=== PATIENT | male | born 1975 | race Caucasian/White ===

== ENCOUNTER 2025-02-20 07:41 | Observation (INO) | payer OTHER ==
--- NOTE | 2025-02-20 07:49 | ERPHSYRPT ---
- History of Present Illness Time Seen by Provider: 02/20/25 07:48 Historian: patient Exam Limitations: no limitations Physician History: This is a 49-year-old white male patient who does not have a primary care provider but does use [facility] outpatient services if needed, and presents with bloody stool and lower abdominal cramping and burning sensation that began at midnight. He had 4 episodes of passage of stool. The first occurred approximately midnight and he did "pass out" he hit his head and there is a very small frontal scalp laceration not requiring any suture or staple closure. He has never had episodes like this before. Approximately 4 [address] Sayda Talavera performed a colonoscopy on this patient and found 6 polyps per patient report. Patient has no nausea or vomiting. He denies chest pain. He denies shortness of breath. He has no known liver disease and he is not on any anticoagulation therapy. He did start creatine and colostrum [id number] products within the last week. Patient does take a baby aspirin daily. Patient arrives hemodynamically stable with a heart rate in the 60s and systolic blood pressure 150s millimeters mercury. Timing/Duration: today Activities at Onset: none Quality: burning (Mild lower abdominal), cramping (Mild lower abdominal) Abdominal Pain Onset Location: other (Infraumbilical) Pain Radiation: no radiation Severity of Pain-Max: mild Severity of Pain-Current: mild Modifying Factors: Improves With: nothing Associated Symptoms: denies symptoms Previous symptoms: no prior history, no recent treatment Allergies/Adverse Reactions: No Known Drug Allergies Allergy (Unverified 02/20/25 07:53) Home Medications: Atorvastatin Calcium 40 mg PO DAILY 02/20/25 [History] Ubidecarenone [Co Q-10] 1 cap PO DAILY 02/20/25 [History] Valsartan/Hydrochlorothiazide [Diovan Hct 80-12.5 mg Tablet] 1 tab PO DAILY 02/20/25 [History] Travel Risk - International Travel Have you traveled outside of the country in past 3 weeks: No - Emerging Infectious Disease Are you exhibiting symptoms associated with any current EIDs: No - Review of Systems Constitutional: No Symptoms Eyes: No Symptoms Ears, Nose, & Throat: No Symptoms Respiratory: No Symptoms Cardiac: No Symptoms Abdominal/Gastrointestinal: Abdominal Pain (Mild infraumbilical bilateral cramping and burning), Hematochezia Genitourinary Symptoms: No Symptoms Musculoskeletal: No Symptoms Skin: No Symptoms Neurological: No Symptoms Psychological: No Symptoms Endocrine: No Symptoms Hematologic/Lymphatic: No Symptoms Immunological/Allergic: No Symptoms All Other Systems: Reviewed and Negative - Past Medical History Pertinent Past Medical History: Yes - Past Surgical History Past Surgical History: Yes - Nursing Vital Signs Nursing Vital Signs: Initial Vital Signs Temperature 97 F 02/20/25 07:42 Pulse Rate 62 02/20/25 07:42 Respiratory Rate 18 02/20/25 07:42 Blood Pressure 144/83 02/20/25 07:42 O2 Sat by Pulse Oximetry 98 02/20/25 07:42 Pain Scale Pain Intensity 2 - Physical Exam General Appearance: no apparent distress, alert, anxiety Eye Exam: PERRL/EOMI, eyes nml inspection Ears, Nose, Throat Exam: normal ENT inspection, moist mucous membranes Neck Exam: normal inspection, non-tender, supple, full range of motion Respiratory Exam: normal breath sounds, lungs clear, No chest tenderness, No respiratory distress Cardiovascular Exam: regular rate/rhythm, normal heart sounds, normal peripheral pulses Gastrointestinal/Abdomen Exam: soft, normal bowel sounds, tenderness (Mild infraumbilical bilateral abdominal tenderness to palpation), guarding, No rebound Rectal Exam: not done Back Exam: normal inspection, normal range of motion, No CVA tenderness, No vertebral tenderness Extremity Exam: normal inspection, normal range of motion Neurologic Exam: alert, oriented x 3, cooperative, 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 II-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 nml as tested, nml cerebellar function, nml station & gait, sensation nml Skin Exam: normal color, warm, dry Lymphatic Exam: No adenopathy SpO2 Interpretation: normal O2 Delivery: Room Air - Course Nursing assessment & vital signs reviewed: Yes Ordered Tests: Active Orders 24 hr Category Date Time Status IV Insertion STAT Care 02/20/25 08:03 Active Orthostatic Vital Signs STAT Care 02/20/25 08:39 Active ABDOMEN AND PELVIS W/0 CONTRAS [CT] Stat Exams 02/20/25 08:05 Completed HEAD WITHOUT CONTRAST [CT] Stat Exams 02/20/25 08:06 Completed CBC W DIFF Stat Lab 02/20/25 08:15 Completed CMP Stat Lab 02/20/25 08:15 Completed PROTIME WITH INR Stat Lab 02/20/25 08:15 Completed Lab/Rad Data: Laboratory Result Diagrams 02/20/25 08:15 02/20/25 08:15 Laboratory Results 02/20/25 02/20/25 02/20/25 Range/Units 08:49 08:15 08:15 WBC (4.23-9.07) x10^3/uL RBC (4.63-6.08) x10^6/uL Hgb (13.7-17.5) g/dL Hct (40.1-51.0) % MCV (79.0-92.2) fL MCH (25.7-32.2) pg MCHC (32.3-36.5) g/dL RDW (11.6-14.4) % Plt Count (163-337) x10^3/uL MPV (9.4-12.4) fL Gran % (34.0-67.9) % Immature Gran % (Auto) (0.001-0.429) % Nucleat RBC Rel Count (0.00-0.2) % Eos # (Auto) (0.04-0.54) x10^3/uL Immature Gran # (Auto) (0.001-0.031) x10^3u/L Absolute Lymphs (auto) (1.32-3.57) x10^3/uL Absolute Monos (auto) (0.30-0.82) x10^3/uL Absolute Nucleated RBC (0.00-0.012) x10^3u/L Lymphocytes % (21.8-53.1) % Monocytes % (5.3-12.2) % Eosinophils % (0.8-7.0) % Basophils % (0.2-1.2) % Absolute Granulocytes (1.78-5.38) x10^3/uL Basophils # (0.01-0.08) x10^3/uL PT 11.6 (9.4-12.5) SECONDS INR 1.04 (0.8-3.0) Sodium 137 (135-145) mmol/L Potassium 4.0 (3.5-5.1) mmol/L Chloride 107 (98-107) mmol/L Carbon Dioxide 23 (22-30) mmol/L Anion Gap 11.9 (5-15) MEQ/L BUN 19 (9-20) mg/dL Creatinine 0.91 (0.66-1.25) mg/dL Estimated GFR 102.0 ML/MIN Glucose 108 H (74-106) mg/dL Calcium 8.6 (8.4-10.2) mg/dL Total Bilirubin 0.40 (0.2-1.3) mg/dL AST 22 (17-59) U/L ALT 22 (0-50) U/L Alkaline Phosphatase 49 (38-126) U/L Serum Total Protein 6.4 (6.3-8.2) g/dL Albumin 3.8 (3.5-5.0) g/dL ABO Group O Rh Factor NEGATIVE Antibody Screen NEGATIVE (NEGATIVE) 02/20/25 Range/Units 08:15 WBC 9.7 H (4.23-9.07) x10^3/uL RBC 3.88 L (4.63-6.08) x10^6/uL Hgb 11.2 L (13.7-17.5) g/dL Hct 34.8 L (40.1-51.0) % MCV 89.7 (79.0-92.2) fL MCH 28.9 (25.7-32.2) pg MCHC 32.2 L (32.3-36.5) g/dL RDW 12.5 (11.6-14.4) % Plt Count 197 (163-337) x10^3/uL MPV 9.8 (9.4-12.4) fL Gran % 56.6 (34.0-67.9) % Immature Gran % (Auto) 0.5 H (0.001-0.429) % Nucleat RBC Rel Count 0.0 (0.00-0.2) % Eos # (Auto) 0.09 (0.04-0.54) x10^3/uL Immature Gran # (Auto) 0.05 H (0.001-0.031) x10^3u/L Absolute Lymphs (auto) 3.23 (1.32-3.57) x10^3/uL Absolute Monos (auto) 0.80 (0.30-0.82) x10^3/uL Absolute Nucleated RBC 0.00 (0.00-0.012) x10^3u/L Lymphocytes % 33.4 (21.8-53.1) % Monocytes % 8.3 (5.3-12.2) % Eosinophils % 0.9 (0.8-7.0) % Basophils % 0.3 (0.2-1.2) % Absolute Granulocytes 5.48 H (1.78-5.38) x10^3/uL Basophils # 0.03 (0.01-0.08) x10^3/uL PT (9.4-12.5) SECONDS INR (0.8-3.0) Sodium (135-145) mmol/L Potassium (3.5-5.1) mmol/L Chloride (98-107) mmol/L Carbon Dioxide (22-30) mmol/L Anion Gap (5-15) MEQ/L BUN (9-20) mg/dL Creatinine (0.66-1.25) mg/dL Estimated GFR ML/MIN Glucose (74-106) mg/dL Calcium (8.4-10.2) mg/dL Total Bilirubin (0.2-1.3) mg/dL AST (17-59) U/L ALT (0-50) U/L Alkaline Phosphatase (38-126) U/L Serum Total Protein (6.3-8.2) g/dL Albumin (3.5-5.0) g/dL ABO Group Rh Factor Antibody Screen (NEGATIVE) - Progress Progress: unchanged, re-examined Progress Note: 02/20/25 08:37 My medical decision making and assignment of moderate complexity of this patient's medical issue today is based on review of the patient's past medical history, reviewed patient's medication list, reviewed patient drug allergy list, history present illness and physical findings on examination. The workup in this patient clues placement of intravenous line, CBC, CMP, type and screen, PT/INR, CT scan of the abdomen pelvis without contrast and obtain orthostatic vital signs. Differential diagnosis includes but is not limited to internal hemorrhoid bleeding, colonic bleeding, bleeding/clotting disorder, diverticulosis 02/20/25 10:12 I interpreted the patient's laboratory data results. Based on laboratory data results, the patient has a mildly low hemoglobin at 11.2. The patient is hemodynamically stable. He has had an additional episode of bright red blood rectally here in the emergency department. The following CT scans were performed without contrast and were interpreted by the radiologist. The impressions are: CT scan of the head without is normal study. CT scan of the abdomen pelvis without contrast shows 1.3 cm gallstones. There is an old right rib fracture. There are mild degenerative changes in bilateral hips. The remaining abdominal pelvic CT scan without contrast is normal 02/20/25 10:[address] Peter Talavera, the general surgeon on-call at this time. I reviewed the patient history, physical findings on examination, results of the workup. He agrees to consult on this patient for colonoscopy. I will be contacting telehospitalist for placement in observation and and we will repeat labs in the morning. Dr. Talavera will be consulted and he will write orders for a bowel prep and plan on endoscopy tomorrow, 02/21/[address] Freeman, the telehospitalist on-call at this time. I reviewed the patient history, physical findings on the examination and the results of the workup. He accepts the patient to be placed in observation. Counseled pt/family regarding: lab results, diagnosis, rad results Medical Desision Making - Diagnostic Testing Diagnostic test were ordered, analyzed, and reviewed by me: Yes Radiological Interpretation: Reviewed by me, Teleradiologist Report - Risk of complications The pt has a high risk of morbidity or mortality based on: Decision regarding hospitilization or escalation of hosp level of care - Departure Departure Disposition: Observation Clinical Impression: Rectal bleeding Condition: Stable Critical Care Time: No Referrals: DOCTOR,NO FAMILY [Primary Care Provider, UNKNOWN] - Follow up/PCP as directed
[2025-02-20 08:27] LABS: BASOPHIL % 0.3 % (0.2-1.2); Basophil (Absolute #) 0.03 x10^3/uL (0.01-0.08); Eosinophil (Absolute #) 0.09 x10^3/uL (0.04-0.54); Hematocrit 34.8 % (40.1-51.0); Hemoglobin 11.2 g/dL (13.7-17.5); IMMATURE GRAN # 0.05 x10^3u/L (0.001-0.031); IMMATURE GRAN % 0.5 % (0.001-0.429); Lymphocyte (Absolute #) 3.23 x10^3/uL (1.32-3.57); Mean Corpuscular Hemoglobin 28.9 pg (25.7-32.2); Mean Corpuscular Hgb Concent. 32.2 g/dL (32.3-36.5); Monocyte (Absolute #) 0.80 x10^3/uL (0.30-0.82); NUCLEATED RBC # 0.00 x10^3u/L (0.00-0.012); NUCLEATED RBC % 0.0 % (0.00-0.2); Platelet Count 197 x10^3/uL (163-337); Red Blood Count 3.88 x10^6/uL (4.63-6.08); White Blood Count 9.7 x10^3/uL (4.23-9.07)
[2025-02-20 08:41] LABS: INR 1.04 (0.8-3.0); PROTIME 11.6 SECONDS (9.4-12.5)
[2025-02-20 09:02] LABS: Calcium 8.6 mg/dL (8.4-10.2); Carbon Dioxide 23.0 mmol/L (22-30); Creatinine 1 0.91 mg/dL (0.66-1.25); EST GLOMERULAR FILTRATION RATE 102.0 ML/MIN; Glucose 108.0 mg/dL (74-106); Potassium 4.0 mmol/L (3.5-5.1); SGOT/AST 22.0 U/L (17-59); SGPT/ALT 22.0 U/L (0-50); Total Protein 6.4 g/dL (6.3-8.2)
[2025-02-20 09:21] LABS: ABO TYPING O; RH TYPING NEGATIVE
--- NOTE | 2025-02-20 09:52 | XRAY ---
Indication: Fall. Syncope. Head injury. Multiple contiguous axial images obtained through the head without contrast. Comparison: None Normal appearing brain parenchyma, ventricles, and bony calvarium for patient's age. Visualized paranasal sinuses and mastoid air cells are clear. Impression: Normal CT head without contrast exam.
--- NOTE | 2025-02-20 10:01 | XRAY ---
Indication: Lower abdominal cramping. Bloody stools. Multiple contiguous axial images obtained through the abdomen pelvis without contrast. Comparison: None Lung bases clear. Heart not enlarged. Noncontrasted stomach and bowel loops appear nonobstructed with normal appendix. 1.3 cm gallstone. No free fluid/air. Remaining liver, pancreas, spleen, adrenal glands, kidneys, ureters, bladder, and aorta are unremarkable for noncontrast exam. Osseous structures intact with old right 10 rib fracture and mild degenerative changes both hips. Impression: 1. 1.3 cm gallstone, old right 10 rib fracture, and mild degenerative changes both hips. 2. Remaining CT abdomen/pelvis without contrast exam is normal.
[2025-02-20] MEDS ORDERED: TYLENOL 325 MG PO PRN (11:48)
--- NOTE | 2025-02-20 13:05 | PCM.HP ---
History of Present Illness - Chief Complaint Chief Complaint: GI bleed Date: 02/20/25 History of Present Illness: is a 49 year old male with pmhx of Hypertension, hyperlipidemia, hemorrhoids, and chronic obesity. Pt presented to ER today with bloody stool and lower abdominal cramping and burning sensation that began at midnight. He had 4 episodes of passage of stool. The first occurred approximately midnight and he did "pass out" he hit his head and there is a very small frontal scalp laceration not requiring any suture or staple closure. He has never had episodes like this before. Approximately 4 [address] Sayda Talavera performed a colonoscopy on this patient and found 6 polyps per patient report. Patient has no nausea or vomiting. He denies chest pain. He denies shortness of breath. He has no known liver disease and he is not on any anticoagulation therapy. He did start creatine and colostrum [id number] products within the last week. Patient does take a baby aspirin daily. Patient arrives hemodynamically stable. Hgb 11.2 General surgery consulted in the ER and will follow-up tomorrow with patient for colonoscopy. Patient to be n.p.o. after midnight. IV fluids started and will be continued inpatient. Protonix 80 IV x 1 then 40 twice daily daily to be started. Patient started on a clear liquid diet. Patient denies any other concerning symptoms at this time. - Review of Systems Constitutional: No Fever, No Chills Eyes: No Symptoms Ears, Nose, & Throat: No Symptoms Respiratory: No Cough, No Short Of Breath Cardiac: No Chest Pain, No Edema, No Syncope Abdominal/Gastrointestinal: Hematochezia, Melena, No Abdominal Pain, No Nausea, No Vomiting, No Diarrhea Genitourinary Symptoms: No Dysuria Musculoskeletal: No Back Pain, No Neck Pain Skin: No Rash Neurological: No Dizziness, No Focal Weakness, No Sensory Changes Psychological: No Symptoms Endocrine: No Symptoms Hematologic/Lymphatic: No Symptoms Immunological/Allergic: No Symptoms Medications & Allergies Home Medications: Home Medication List Aspirin EC 81 mg [Ecotrin 81 mg] 81 mg PO DAILY 02/20/25 [History Confirmed 02/20/25] Atorvastatin Calcium 40 mg PO DAILY 02/20/25 [History Confirmed 02/20/25] Ubidecarenone [Co Q-10] 1 cap PO DAILY 02/20/25 [History Confirmed 02/20/25] Valsartan/Hydrochlorothiazide [Diovan Hct 80-12.5 mg Tablet] 1 tab PO DAILY 02/20/25 [History Confirmed 02/20/25] Allergies/Adverse Reactions: Allergies Allergy/AdvReac Type Severity Reaction Status Date / Time No Known Drug Allergies Allergy Verified 02/20/25 11:50 - Past Medical History Past Medical History: Yes Cardiac History: High Cholesterol, Hypertension Musculoskelatal History: No Pertinent History GI Medical History: Hemorrhoids History: No Pertinent History Pyscho-Social History: No Pertinent History Male Reproductive Disorders: No Pertinent History Comment: basal cell carcinoma RLE - Past Surgical History Past Surgical History: Yes Neuro Surgical History: No Pertinent History Cardiac History: No Pertinent History Respiratory Surgery: No Pertinent History GI Surgical History: No Pertinent History Genitourinary Surgical Hx: No Pertinent History Musculskeletal Surgical Hx: No Pertinent History Male Surgical History: No Pertinent History Other Surgical History: LAST CS 4YRS AGO, 6 POLYPS REMOVED Significant Family History: no pertinent family hx - Social History Smoking Status: Former smoker Exposure to second hand smoke: No Alcohol: Occasionally Drug Use: none - Social Determinants of Health Will the patient participate in the screening: Yes Do you worry about a steady place to live?: No Do you have any problems with any of the following?: No known problems In the past 12 months,have you had to go without utilities?: No Have you or anyone in your house had to go without enough: No Transportation Issues: No Has anyone in your support network made you feel unsafe?: No Does the patient want assistance with any of the above?: No - Physical Exam Vital Signs: Vital Signs - 24 hr Temp Pulse Resp BP BP Pulse Ox 02/20/25 12:01 97.8 F 60 18 130/75 99 02/20/25 12:00 97.8 F 60 18 130/75 99 02/20/25 11:00 68 18 122/71 02/20/25 10:30 78 18 117/67 100 02/20/25 10:00 60 132/86 97 02/20/25 09:36 132/97 98 02/20/25 09:35 161/87 02/20/25 09:30 61 124/66 98 02/20/25 09:03 113/79 97 02/20/25 08:09 65 16 144/83 97 02/20/25 07:47 159/93 02/20/25 07:42 97 F 62 18 144/83 98 General Appearance: no apparent distress, alert Neurologic Exam: alert, oriented x 3, cooperative, normal mood/affect, nml cerebellar function, nml station & gait, sensation nml, No motor deficits Eye Exam: PERRL/EOMI, eyes nml inspection Ears, Nose, Throat Exam: normal ENT inspection, TMs normal, pharynx normal, moist mucous membranes Neck Exam: normal inspection, non-tender, supple, full range of motion Respiratory Exam: normal breath sounds, lungs clear, No respiratory distress Cardiovascular Exam: regular rate/rhythm, normal heart sounds, normal peripheral pulses Gastrointestinal/Abdomen Exam: soft, normal bowel sounds, tenderness, No mass Back Exam: normal inspection, normal range of motion, No CVA tenderness, No vertebral tenderness Extremity Exam: normal inspection, normal range of motion, pelvis stable Skin Exam: normal color, warm, dry, No rash Lymphatic Exam: No adenopathy Results - Labs Lab/Micro Results: Lab Results-Last 24 Hours 02/20/25 02/20/25 02/20/25 Range/Units 08:15 08:15 08:15 WBC 9.7 H (4.23-9.07) x10^3/uL RBC 3.88 L (4.63-6.08) x10^6/uL Hgb 11.2 L (13.7-17.5) g/dL Hct 34.8 L (40.1-51.0) % MCV 89.7 (79.0-92.2) fL MCH 28.9 (25.7-32.2) pg MCHC 32.2 L (32.3-36.5) g/dL RDW 12.5 (11.6-14.4) % Plt Count 197 (163-337) x10^3/uL MPV 9.8 (9.4-12.4) fL Gran % 56.6 (34.0-67.9) % Immature Gran % (Auto) 0.5 H (0.001-0.429) % Nucleat RBC Rel Count 0.0 (0.00-0.2) % Eos # (Auto) 0.09 (0.04-0.54) x10^3/uL Immature Gran # (Auto) 0.05 H (0.001-0.031) x10^3u/L Absolute Lymphs (auto) 3.23 (1.32-3.57) x10^3/uL Absolute Monos (auto) 0.80 (0.30-0.82) x10^3/uL Absolute Nucleated RBC 0.00 (0.00-0.012) x10^3u/L Lymphocytes % 33.4 (21.8-53.1) % Monocytes % 8.3 (5.3-12.2) % Eosinophils % 0.9 (0.8-7.0) % Basophils % 0.3 (0.2-1.2) % Absolute Granulocytes 5.48 H (1.78-5.38) x10^3/uL Basophils # 0.03 (0.01-0.08) x10^3/uL PT 11.6 (9.4-12.5) SECONDS INR 1.04 (0.8-3.0) Sodium 137 (135-145) mmol/L Potassium 4.0 (3.5-5.1) mmol/L Chloride 107 (98-107) mmol/L Carbon Dioxide 23 (22-30) mmol/L Anion Gap 11.9 (5-15) MEQ/L BUN 19 (9-20) mg/dL Creatinine 0.91 (0.66-1.25) mg/dL Estimated GFR 102.0 ML/MIN Glucose 108 H (74-106) mg/dL Calcium 8.6 (8.4-10.2) mg/dL Total Bilirubin 0.40 (0.2-1.3) mg/dL AST 22 (17-59) U/L ALT 22 (0-50) U/L Alkaline Phosphatase 49 (38-126) U/L Serum Total Protein 6.4 (6.3-8.2) g/dL Albumin 3.8 (3.5-5.0) g/dL ABO Group Rh Factor Antibody Screen (NEGATIVE) 02/20/25 Range/Units 08:49 WBC (4.23-9.07) x10^3/uL RBC (4.63-6.08) x10^6/uL Hgb (13.7-17.5) g/dL Hct (40.1-51.0) % MCV (79.0-92.2) fL MCH (25.7-32.2) pg MCHC (32.3-36.5) g/dL RDW (11.6-14.4) % Plt Count (163-337) x10^3/uL MPV (9.4-12.4) fL Gran % (34.0-67.9) % Immature Gran % (Auto) (0.001-0.429) % Nucleat RBC Rel Count (0.00-0.2) % Eos # (Auto) (0.04-0.54) x10^3/uL Immature Gran # (Auto) (0.001-0.031) x10^3u/L Absolute Lymphs (auto) (1.32-3.57) x10^3/uL Absolute Monos (auto) (0.30-0.82) x10^3/uL Absolute Nucleated RBC (0.00-0.012) x10^3u/L Lymphocytes % (21.8-53.1) % Monocytes % (5.3-12.2) % Eosinophils % (0.8-7.0) % Basophils % (0.2-1.2) % Absolute Granulocytes (1.78-5.38) x10^3/uL Basophils # (0.01-0.08) x10^3/uL PT (9.4-12.5) SECONDS INR (0.8-3.0) Sodium (135-145) mmol/L Potassium (3.5-5.1) mmol/L Chloride (98-107) mmol/L Carbon Dioxide (22-30) mmol/L Anion Gap (5-15) MEQ/L BUN (9-20) mg/dL Creatinine (0.66-1.25) mg/dL Estimated GFR ML/MIN Glucose (74-106) mg/dL Calcium (8.4-10.2) mg/dL Total Bilirubin (0.2-1.3) mg/dL AST (17-59) U/L ALT (0-50) U/L Alkaline Phosphatase (38-126) U/L Serum Total Protein (6.3-8.2) g/dL Albumin (3.5-5.0) g/dL ABO Group O Rh Factor NEGATIVE Antibody Screen NEGATIVE (NEGATIVE) - Radiology Impressions Radiology Exams & Impressions: Radiology Procedures Category Date Time Status ABDOMEN AND PELVIS W/0 CONTRAS [CT] Stat Exams 02/20/25 08:05 Completed HEAD WITHOUT CONTRAST [CT] Stat Exams 02/20/25 08:06 Completed Assessment/Plan (1) GI bleed Current Visit: Yes Status: Acute Assessment & Plan: - Protonix IV 80 x1 then 40 BID IV - GS consulted and pt to have scope in AM - NPO at midnight - Clear liquid diet for now - Hgb stable at 11.2 - CT abd/pelvis: Impression: 1. 1.3 cm gallstone, old right 10 rib fracture, and mild degenerative changes both hips. 2. Remaining CT abdomen/pelvis without contrast exam is normal. Code(s): K92.2 - GASTROINTESTINAL HEMORRHAGE, UNSPECIFIED (2) Syncope and collapse Current Visit: Yes Status: Acute Assessment & Plan: - 2:2 GI bleed - EKG - Tele - CBC, CMP reviewed - CT head negative for acute concern - IVF - Cut on forehead from fall with scab Code(s): R55 - SYNCOPE AND COLLAPSE (3) HTN (hypertension) Current Visit: Yes Status: Chronic Assessment & Plan: - BP stable - Resume home meds Code(s): I10 - ESSENTIAL (PRIMARY) HYPERTENSION (4) Hyperlipidemia Current Visit: Yes Status: Chronic Assessment & Plan: - Continue statin Code(s): E78.5 - HYPERLIPIDEMIA, UNSPECIFIED (5) Obesity (BMI 30.0-34.9) Current Visit: Yes Status: Chronic Assessment & Plan: - Advised AHA diet and exercise control VTE: SCD's PPI: Protonix Next of kin: Spouse D/C plan: 1-2 days PLan of care time : > 50 minutes Code(s): E66.811 - OBESITY, CLASS 1
[2025-02-20] MEDS: PROTONIX 40 MG IV IV ONE (14:03)
[2025-02-20] MEDS: hydroDIURIL 25 MG PO SCH (14:05)
[2025-02-20] MEDS: DIOVAN 80 MG PO SCH (14:06)
[2025-02-20] MEDS: ZOCOR 20MG PO SCH (14:06)
[2025-02-20] MEDS: Golytely Solution 4000 ML PO ONE (14:13)
[2025-02-20] MEDS: TYLENOL 325 MG PO PRN (19:36)
[2025-02-20] MEDS: PROTONIX 40 MG IV IV SCH (21:37)
[2025-02-21 05:17] LABS: BASOPHIL % 0.7 % (0.2-1.2); Basophil (Absolute #) 0.04 x10^3/uL (0.01-0.08); Eosinophil (Absolute #) 0.14 x10^3/uL (0.04-0.54); Hematocrit 29.1 % (40.1-51.0); Hemoglobin 9.4 g/dL (13.7-17.5); IMMATURE GRAN # 0.02 x10^3u/L (0.001-0.031); IMMATURE GRAN % 0.3 % (0.001-0.429); Lymphocyte (Absolute #) 2.83 x10^3/uL (1.32-3.57); Mean Corpuscular Hemoglobin 28.9 pg (25.7-32.2); Mean Corpuscular Hgb Concent. 32.3 g/dL (32.3-36.5); Monocyte (Absolute #) 0.59 x10^3/uL (0.30-0.82); NUCLEATED RBC # 0.00 x10^3u/L (0.00-0.012); NUCLEATED RBC % 0.0 % (0.00-0.2); Platelet Count 158 x10^3/uL (163-337); Red Blood Count 3.25 x10^6/uL (4.63-6.08); White Blood Count 5.8 x10^3/uL (4.23-9.07)
[2025-02-21 06:20] LABS: Calcium 8.3 mg/dL (8.4-10.2); Carbon Dioxide 28.0 mmol/L (22-30); Creatinine 1 0.87 mg/dL (0.66-1.25); EST GLOMERULAR FILTRATION RATE 104.5 ML/MIN; Glucose 100.0 mg/dL (74-106); Potassium 3.3 mmol/L (3.5-5.1); SGOT/AST 22.0 U/L (17-59); SGPT/ALT 21.0 U/L (0-50); Total Protein 5.7 g/dL (6.3-8.2)
[2025-02-21] MEDS: POTASSIUM CHLORIDE 20 mEq IN WATER 100ML 20 MEQ/100 ML BAG IV ONE (08:38)
[2025-02-21] MEDS: Zofran 4 MG/2 ML VIAL IV PRN (09:46)
[2025-02-21] MEDS: OFIRMEV 100 ML IV ONE (09:48)
--- NOTE | 2025-02-21 09:55 | CONS ---
HISTORY: The patient is a 49-year-old male who presented status post syncopal episode while using the bathroom. He had complained about some dark stools here recently. Reports that he one minute was using the restroom and the next minute he woke up on the floor. He did not complain of any abdominal pain today. Exam is soft and nontender today. He does report having a colonoscopy about 4 years ago and does report some hemorrhoids. PAST MEDICAL HISTORY: Hypertension, hyperlipidemia. PAST SURGICAL HISTORY: None recent. HOME MEDICATIONS: Hydrochlorothiazide, atorvastatin, aspirin, CoQ10. ALLERGIES: Per chart. FAMILY HISTORY: Per chart. REVIEW OF SYSTEMS: CONSTITUTIONAL: Denies fever, chills. CHEST: Denies shortness of breath. CARDIOVASCULAR: Denies blood pressure. ABDOMEN: Denies abdominal pain. LAB DATA AND TESTS: His studies and films were reviewed. He does have hemoglobin 11.2 today. It appears that his chemistry is fine. It looks like he had a CAT scan of his head which was normal. He also had CT abdomen and pelvis incidentally showing a gallstone and some old rib fractures and some degenerative hip changes but otherwise the abdomen and pelvis looked normal. PHYSICAL EXAMINATION: GENERAL: No acute distress. CHEST: Nonlabored. No shortness of breath. CARDIOVASCULAR: Regular rate and rhythm. ABDOMEN: Soft, nontender to palpation. IMPRESSION: Patient appears to have a recent GI bleed with a syncopal episode. He has a small hematoma on his forehead after passing out on the toilet. PLAN: We will plan on going endoscopy tomorrow on the patient. We will do a colonoscopy, EGD with Dr. Peter Talavera. This report was dictated for Dr. Talavera by Zee Carr NP.
--- NOTE | 2025-02-21 10:39 | PCM.DS ---
Discharge Summary Date of Admission: 02/20/25 11:47 Date of Discharge: 02/21/25 Admitting Physician: BRENT MONET MD Consults: Consults on Case 02/20/25 11:48 Consult Surgery ROUTINE Primary Care Provider: NO FAMILY DOCTOR Allergies Allergies No Known Drug Allergies Allergy (Verified 02/20/25 11:50) Hospital Summary - Hospital Course Hospital Course: 02/20/25 is a 49 year old male with pmhx of Hypertension, hyperlipidemia, hemorrhoids, and chronic obesity. Pt presented to ER today with bloody stool and lower abdominal cramping and burning sensation that began at midnight. He had 4 episodes of passage of stool. The first occurred approximately midnight and he did "pass out" he hit his head and there is a very small frontal scalp laceration not requiring any suture or staple closure. He has never had episodes like this before. Approximately 4 [address] Sayda Talavera performed a colonoscopy on this patient and found 6 polyps per patient report. Patient has no nausea or vomiting. He denies chest pain. He denies shortness of breath. He has no known liver disease and he is not on any anticoagulation therapy. He did start creatine and colostrum [id number] products within the last week. Patient does take a baby aspirin daily. Patient arrives hemodynamically stable. Hgb 11.2 General surgery consulted in the ER and will follow-up tomorrow with patient for colonoscopy. Patient to be n.p.o. after midnight. IV fluids started and will be continued inpatient. Protonix 80 IV x 1 then 40 twice daily daily to be started. Patient started on a clear liquid diet. Patient denies any other concerning symptoms at this time. 02/21/25 Pt resting in bed. He was prepped overnight for a colonoscopy today to be done at 1500. He reports no abdominal pain or any further bloody stools this morning. Patient states that his output is now clear. Potassium was 3.3 and replaced IV. Will recheck later this afternoon. Hemoglobin is 9.4 which is a drop from 11.2. Continue Protonix twice daily for GI bleed. Continue IV fluids at 50 ml/hr. Patient complaining of a headache this morning and IV Tylenol gave since he is NPO. If there is nothing concerning found on colonoscopy and if okay with surgery patient may d/c this evening. He denies any further concerns at this time. - Vitals & Intake/Output Vital Signs: Vital Signs Temperature 97.9 F 02/21/25 04:00 Pulse Rate 60 02/21/25 08:00 Respiratory Rate 17 02/21/25 08:00 Blood Pressure 106/58 02/21/25 08:00 O2 Sat by Pulse Oximetry 96 02/21/25 08:00 Intake & Output: Intake & Output 02/18/25 02/19/25 02/20/25 02/21/25 11:59 11:59 11:59 11:59 Intake Total 3963 Balance 3963 Weight 105.6 kg 105.6 kg - Lab Result Diagrams: 02/21/25 04:59 02/21/25 13:20 Lab Results-Last 24 Hrs: Lab Results-Last 24 Hours 02/21/25 02/21/25 Range/Units 04:59 04:59 WBC 5.8 (4.23-9.07) x10^3/uL RBC 3.25 L (4.63-6.08) x10^6/uL Hgb 9.4 L (13.7-17.5) g/dL Hct 29.1 L (40.1-51.0) % MCV 89.5 (79.0-92.2) fL MCH 28.9 (25.7-32.2) pg MCHC 32.3 (32.3-36.5) g/dL RDW 12.6 (11.6-14.4) % Plt Count 158 L (163-337) x10^3/uL MPV 9.6 (9.4-12.4) fL Gran % 38.0 (34.0-67.9) % Immature Gran % (Auto) 0.3 (0.001-0.429) % Nucleat RBC Rel Count 0.0 (0.00-0.2) % Eos # (Auto) 0.14 (0.04-0.54) x10^3/uL Immature Gran # (Auto) 0.02 (0.001-0.031) x10^3u/L Absolute Lymphs (auto) 2.83 (1.32-3.57) x10^3/uL Absolute Monos (auto) 0.59 (0.30-0.82) x10^3/uL Absolute Nucleated RBC 0.00 (0.00-0.012) x10^3u/L Lymphocytes % 48.5 (21.8-53.1) % Monocytes % 10.1 (5.3-12.2) % Eosinophils % 2.4 (0.8-7.0) % Basophils % 0.7 (0.2-1.2) % Absolute Granulocytes 2.21 (1.78-5.38) x10^3/uL Basophils # 0.04 (0.01-0.08) x10^3/uL Sodium 140 (135-145) mmol/L Potassium 3.3 L (3.5-5.1) mmol/L Chloride 106 (98-107) mmol/L Carbon Dioxide 28 (22-30) mmol/L Anion Gap 9.3 (5-15) MEQ/L BUN 9 (9-20) mg/dL Creatinine 0.87 (0.66-1.25) mg/dL Estimated GFR 104.5 ML/MIN Glucose 100 (74-106) mg/dL Calcium 8.3 L (8.4-10.2) mg/dL Total Bilirubin 0.40 (0.2-1.3) mg/dL AST 22 (17-59) U/L ALT 21 (0-50) U/L Alkaline Phosphatase 43 (38-126) U/L Serum Total Protein 5.7 L (6.3-8.2) g/dL Albumin 3.2 L (3.5-5.0) g/dL - Radiology Exams Ordered Rad Exams-Entire Visit: Radiology Procedures Category Date Time Status ABDOMEN AND PELVIS W/0 CONTRAS [CT] Stat Exams 02/20/25 08:05 Completed HEAD WITHOUT CONTRAST [CT] Stat Exams 02/20/25 08:06 Completed Discharge Exam General Appearance: no apparent distress, alert Neurologic Exam: alert, oriented x 3, cooperative, normal mood/affect, nml cerebellar function, sensation nml, No motor deficits Eye Exam: PERRL, EOMI, eyes nml inspection Ears, Nose, Throat Exam: normal ENT inspection, pharynx normal, moist mucous membranes Neck Exam: normal inspection, non-tender, supple, full range of motion Respiratory Exam: normal breath sounds, lungs clear, No respiratory distress Cardiovascular Exam: regular rate/rhythm, normal heart sounds Gastrointestinal/Abdomen Exam: soft, No tenderness, No mass Male Genitalia Exam: deferred Rectal Exam: deferred Back Exam: normal inspection, normal range of motion, No CVA tenderness, No vertebral tenderness Extremity Exam: normal inspection, normal range of motion Skin Exam: normal color, warm, dry Final Diagnosis/Problem List - Final Discharge Diagnosis/Problem (1) GI bleed Current Visit: Yes Status: Acute Code(s): K92.2 - GASTROINTESTINAL HEMORRHAGE, UNSPECIFIED (2) Syncope and collapse Current Visit: Yes Status: Acute Code(s): R55 - SYNCOPE AND COLLAPSE (3) HTN (hypertension) Current Visit: Yes Status: Chronic Code(s): I10 - ESSENTIAL (PRIMARY) HYPERTENSION (4) Hyperlipidemia Current Visit: Yes Status: Chronic Code(s): E78.5 - HYPERLIPIDEMIA, UNSPECIFIED (5) Obesity (BMI 30.0-34.9) Current Visit: Yes Status: Chronic Assessment & Plan: (1) GI bleed Current Visit: Yes Status: Acute Assessment & Plan: - Protonix IV 80 x1 then 40 BID IV - IVF - GS consulted and pt to have scope in AM - NPO at midnight - Clear liquid diet for now - Hgb stable at 11.2 - CT abd/pelvis: Impression: 1. 1.3 cm gallstone, old right 10 rib fracture, and mild degenerative changes both hips. 2. Remaining CT abdomen/pelvis without contrast exam is normal. 02/21 - Hgb 9.4- dropped - Colonoscopy at 1500 today - OK to d/c per GS- No active bleeding seen- + Gastritis, internal and external hemorrhoids seen with multiple polyps removed- F/U in 3 years for repeat colonoscopy. - Started Protonix 20mg daily OP Code(s): K92.2 - GASTROINTESTINAL HEMORRHAGE, UNSPECIFIED (2) Syncope and collapse Current Visit: Yes Status: Acute Assessment & Plan: - 2:2 GI bleed - EKG - Tele - CBC, CMP reviewed - CT head negative for acute concern - IVF - Cut on forehead from fall with scab Code(s): R55 - SYNCOPE AND COLLAPSE (3) HTN (hypertension) Current Visit: Yes Status: Chronic Assessment & Plan: - BP stable - Resume home meds Code(s): I10 - ESSENTIAL (PRIMARY) HYPERTENSION (4) Hyperlipidemia Current Visit: Yes Status: Chronic Assessment & Plan: - Continue statin Code(s): E78.5 - HYPERLIPIDEMIA, UNSPECIFIED (5) Obesity (BMI 30.0-34.9) Current Visit: Yes Status: Chronic Assessment & Plan: - Advised AHA diet and exercise control D/C plan of care time: > 40 minutes - New med protonix daily Code(s): E66.811 - OBESITY, CLASS 1 - Discharge Discharge Date: 02/21/25 Disposition: Home, Self-Care Condition: Stable Prescriptions: Continue Valsartan/Hydrochlorothiazide [Diovan Hct 80-12.5 mg Tablet] 1 tab PO DAILY Ubidecarenone [Co Q-10] 1 cap PO DAILY Atorvastatin Calcium 40 mg PO DAILY Aspirin EC 81 mg [Ecotrin 81 mg] 81 mg PO DAILY Instructions: GI bleed - Discharge instructions Follow up with: DOCTOR,NO FAMILY [Primary Care Provider, UNKNOWN]
[2025-02-21 11:29] VITALS: O2SAT 95
[2025-02-21 16:26] VITALS: BP 117/58; PULSE 67; RESP 18; TEMP 98.6
[2025-02-21] MEDS ORDERED: Xylocaine-Mpf 2% 5 Ml Vial ONE (16:52)
[2025-02-21] MEDS ORDERED: propofoL IV ONE ×3 (16:52→17:17)
[2025-02-21] MEDS ORDERED: Versed 2 MG/2 ML Injection ONE (16:52)
--- NOTE | 2025-02-24 13:58 | OP ---
SURGERY DATE/TIME: 02/21/2025 [id number] PREOPERATIVE DIAGNOSIS: Acute gastrointestinal bleed. POSTOPERATIVE DIAGNOSIS: There is no absolute confirmatory information today on either upper or lower scope. PROCEDURES: EGD/Colonoscopy. SURGEON: Peter Talavera MD INDICATIONS: The patient did have a very significant gastrointestinal bleed. A picture of the bloody stool was shown to me by the . This happened about 2-1/2 days ago, and he had about 2 or 3 bowel movements at home and 1 in the ER. He was admitted. He was able to be given a bowel preparation. It is unclear whether this was lower or possibly still upper. He did have a lower examination about 4-1/[address] Sayda Talavera with polypectomy x6. He is about due, I figure he is on a 5-year schedule. Regardless, then he had this acute episode, so he is scheduled both for an upper/lower scope. DESCRIPTION OF PROCEDURE AND FINDINGS: Patient was taken to endoscopy, left lateral decubitus position. Scope introduced. Vocal cords normal. Larynx normal. Epiglottis normal. Both gutters of the pharynx were normal. Pharyngoesophageal junction cannulated. Esophagus normal down to EG junction. A 1 cm rim of esophagitis, grade 2/4 GERD. There was no hiatal hernia either from the upper part of the scope or retroflexion later. There was 1.5 to 2 ounces of bilious material pooled in the fundus of the stomach. This was suctioned and irrigated and suctioned. The fundus body, antrum were basically normal. Pylorus was normal. Keyhole view was normal. Duodenal bulb was normal. Second portion of duodenum normal. Ampullary not specifically identified today. There was no blood, either old or new, on today's exam. The scope was retroflexed. There was no hiatal hernia. Scope was withdrawn. IMPRESSION: Patient did have grade 2 gastroesophageal reflux disease and did have retained bilious material in the fundus of the body suggesting a very mild gastroparesis. There was no vegetable matter or bezoar, and the pylorus was satisfactorily open. Anal digital examination satisfactory tone, satisfactory prostate. There was no blood visible, there were hemorrhoids. Rectal vault was normal. The sigmoid, there was a little spasm from the get-go at the rectosigmoid junction, up to the descending colon, slightly redundant, slightly long, probably 30, 40 cm of sigmoid. There were half a dozen visible small diverticula orifices, but there was 1 aubrey of black material about 6 mm x 6 mm sort of square, almost thick paper thin. Scope was advanced up. There was nothing seen suggesting any bleeding all the way to the cecum. On forward advancement of the scope, in the descending colon, a 1 cm polyp was identified and taken with hot biopsy forceps. Base of cecum, ileocecal valve, appendiceal area were normal. Excellent bowel prep was present. There was absolutely no blood, nothing coming out of the ileocecal valve area, nothing at the base of cecum. Nothing on this exam other than the 1 aubrey that was mentioned in the sigmoid. There was a 1 cm polyp in the cecal-ascending colon area taken with a hot biopsy forceps to extinction. Hepatic flexure inside portion of the curve, a 2 cm sessile polyp was taken with 3 major applications of a hot biopsy forceps central, cephalad and caudad. This totally destroyed this polyp. There was another 1 cm polyp in the mid transverse colon taken. In all, 4 polyps, 4 jars; most concerning was the sessile hepatic 2 cm. Although it grossly appeared benign, it does qualify as a very legitimate polyp. On withdrawal, again no additional findings were noted. Findings and pictures were discussed with the . IMPRESSION: Successful hot polypectomy x4. RECOMMENDATIONS: We will advance his colonoscopy schedule to 3 years from 5 years. I do not know of any specific instructions at this time. He does have some GERD with some bile retention. He will return to the office for his pathology report, and he will be scheduled for a 3-year followup colonoscopic examination.
== END 2025-02-21 19:09 | disposition home or self-care (01) ==
LOC: ED 07:41 → MED SURG 11:47
PROVIDERS: ADMIT Internal Medicine; ATTEND Internal Medicine
DX: K92.2 Gastrointestinal hemorrhage, unspecified (principal); R55 Syncope and collapse; I10 Essential (primary) hypertension; E78.5 Hyperlipidemia, unspecified; E66.811 Obesity, class 1; W19.XXXA Unspecified fall, initial encounter; K21.9 Gastro-esophageal reflux disease without esophagitis; K64.9 Unspecified hemorrhoids; K63.5 Polyp of colon; E87.6 Hypokalemia; Z79.899 Other long term (current) drug therapy
CPT/HCPCS: 36415; 43235; 45384; 70450; 74176; 80053; 84132; 85025; 85610; 86850; 86900; 86901; 93268; 99285; G0378; Q3014